=== PATIENT | male | born 1955 | race Caucasian/White ===

== ENCOUNTER → 2018-05-15 10:46 | Outpatient (CLI) | payer MEDICAID, SELFPAY ==
[2018-05-15 11:55] LABS: Absolute Lymphocyte Count 2.68 X10^3/ul (0.83-4.51); Absolute Neutrophil Count 3.8 X10^3/uL (2.0-7.7); Basophil# 0.02 X10^3/uL; Basophil% 0.3 % (0-1); Eosinophil# 0.16 X10^3/uL; Eosinophils% 2.3 % (0-5); Hematocrit 43.1 % (40-54); Hemoglobin 14.6 g/dl (13.0-16.5); Lymphocyte # 2.68 X10^3/ul (4.0); Lymphocyte % 37.9 % (19-41); Mean Corp Hgb Conc 33.9 g/gl (32-36); Mean Corpuscular Hgb 32.5 pg (27.0-32.0); Mean Platelet Vol. 9.9 fl (6.2-12.0); Monocyte# 0.39 X10^3/uL; Monocyte% 5.5 % (0-10); Neutrophil # 3.82 X10^3/uL (2.7-7.7); Platelet Count 270 K/mm3 (150-450); RBC Distribution Width CV 13.2 % (11.6-14.6); RBC Distribution Width SD 46.3 fl (35.1-43.9); Red Blood Count 4.49 M/mm3 (4.6-6.2); White Blood Count 7.1 K/mm3 (4.4-11.0)
--- NOTE | 2018-05-15 12:00 | US_ITS ---
STUDY: THYROID ULTRASOUND REASON FOR EXAM: Male, 62 years old. Right neck lump. TECHNIQUE: Ultrasound evaluation of the thyroid was performed with real-time and static marin-scale imaging. COMPARISON: None. FINDINGS: RIGHT LOBE: The right lobe of the thyroid gland measures 4.4 cm x 1.7 cm x 1.4 cm. There is a homogeneous echotexture. There is a 4 mm x 3 mm x 3 mm mixed solid and cystic nodule in the midportion of the right lobe. LEFT LOBE: The left lobe of the thyroid gland measures 4.5 cm x 1.5 cm x 1.2 cm. There is a homogeneous echotexture. There is a 3 mm x 4 mm x 2 mm cyst in the lower lobe. There is also evidence of a 4 mm x 4 mm x 3 mm solid nodule in the lower lobe. ISTHMUS: The isthmus measures 2.0 mm. The regional lymph nodes are normal. US/Thyroid IMPRESSION: Subcentimeters bilateral nodules. No other abnormality is seen. Electronically Signed: Manoj Savage MD at 13:13 EST Tel [phone], Service support ,
[2018-05-15 12:01] LABS: POSITIVE COUNT NO; POSITIVE DIFFERENTIAL NO; POSITIVE MORPHOLOGY NO
[2018-05-15 12:08] LABS: BUN 17 mg/dL (7-18); Creatinine, Serum 1.03 mg/dL (0.70-1.30); Glucose 90 mg/dL (74-106)
[2018-05-15 12:09] LABS: Anion Gap 4 (5-15); BUN/Creat Ratio 16.5 RATIO (10-20); Calcium,Total 9.1 mg/dL (8.5-10.1); Chloride 106 mmol/L (98-107); EST Glomerular Filtration Rate 77 mL/min (>60); Est Glom Filt Rate - Afr Amer 93 mL/min (>60); Potassium 4.2 mmol/L (3.5-5.1); Sodium Level 140 mmol/L (136-145)
--- OUTSIDE RECORDS SUMMARY | 2018-07-10 13:05 | XMS RPT_ITS ---
:1955 Author Organization [facility] Care Team Providers Name Role Phone Ranjeet Eid Attending Unavailable Ranjeet Eid Primary Care Unavailable Ranjeet Eid Referring Unavailable Ranjeet Eid Attending Unavailable Ranjeet Eid Referring Unavailable Ranjeet Eid Primary Care Unavailable PROBLEMS PROBLEMS DATE TYPE CONDITION / CODE ATTENDING STATUS SOURCE 05/15/2018 Unknown R22.1 - Ranjeet Eid Active [place] Local[facility] Community swelling, [facility] and lump, neck / Repository R22.1(ICD-10) PROCEDURES PROCEDURES No Procedure Records FoundRESULTS RESULTS CAROTID UNILATERAL Observed: 05/18/2018 Status: F Source: [place] 2:16 PM [facility] REPOSITORY [facility] Cardiovascular Services [address] [place] [address] Carotid Unilateral 05/16/18 1000 MR#: [id number] Acct: [id number] Name: JORGE JACQUES Rep #: [id number] : 1955 62 From: Arnoldo Vital MD Attending Dr: Ranjeet Eid DO Status: REG CLI Ordering Dr: Ranjeet Eid DO Date: 05/16/18 Location: [facility] Sex: M C Admitted: Reason For Study: Neck Pain Rt. Velocities/BP Prox CCA 93.8/14.1 cm/sec. Mid CCA 60.9/12.2 cm/sec. Dist CCA 48.3/11.4 cm/sec. Prox ICA 97.3/22.3 cm/sec. Mid ICA 91.5/28.1 cm/sec. Dist ICA 95.6/32.2 cm/sec. Rt. ICA/CCA = 1.60. Prox ECA 101/9.97 cm/sec. Rt. Vert. 46.4/13 cm/sec. Right Extracranial There is heterogeneous, smooth atherosclerotic plaque noted in the right common carotid artery. There is homogeneous, smooth atherosclerotic plaque noted in the right internal carotid artery. There is intimal thickening but no significant atherosclerotic plaque noted in the right external carotid artery. Antegrade flow is noted in the right vertebral artery. Procedure Carotid Duplex 18741. Exam performed in department. Interpretation Summary Mild (<50%) stenosis right extracranial internal carotid. Flow within the right verterbral artery is antegrade. Ordering Physician: Ranjeet Eid Referring Physician: Ranjeet Eid Performed By: Priscilla Natarajan RVT and Student 05/18/18 1416 Date Arnoldo Vital MD CC: Ranjeet Eid DO Date Dictated: 05/16/18 1000 Date Transcribed: 05/18/181415 Superintendent Terminal: Signed THYROID Observed: 05/15/2018 Status: F Source: [place] 12:00 PM [facility] REPOSITORY [facility] Imaging Services [address] [place] [address] Thyroid MR#: [id number] Acct: [id number] Name: JORGE JACQUES Rep #: [id number] : 1955 M 62 From: Manoj Savage MD PCP: Ranjeet Eid DO Status: REG CLI Study: Thyroid Date of Exam: 05/15/18 Exam# [id number] Ordering Dr: Ranjeet Eid DO STUDY: THYROID ULTRASOUND REASON FOR EXAM: Male, 62 years old. Right neck lump. TECHNIQUE: Ultrasound evaluation of the thyroid was performed with real-time and static marin-scale imaging. COMPARISON: None. FINDINGS: RIGHT LOBE: The right lobe of the thyroid gland measures 4.4 cm x 1.7 cm x 1.4 cm. There is a homogeneous echotexture. There is a 4 mm x 3 mm x 3 mm mixed solid and cystic nodule in the midportion of the right lobe. LEFT LOBE: The left lobe of the thyroid gland measures 4.5 cm x 1.5 cm x 1.2 cm. There is a homogeneous echotexture. There is a 3 mm x 4 mm x 2 mm cyst in the lower lobe. There is also evidence of a 4 mm x 4 mm x 3 mm solid nodule in the lower lobe. ISTHMUS: The isthmus measures 2.0 mm. The regional lymph nodes are normal. US/Thyroid IMPRESSION: Subcentimeters bilateral nodules. No other abnormality is seen. Electronically Signed: Manoj Savage MD at 13:13 EST Tel [phone], Service support , CC: Ranjeet Eid DO Superintendent Terminal: Signed CBC W/DIFF, AUTOMATED Collected: 05/15/2018 Status: F Source: [place] 10:48 AM [facility] REPOSITORY TYPE CODE TESTS RESULT OUT OF RANGE REFERENCE UNITS LAB L100.1000 4.4-11.0 K/mm3 Normal WBC 7.1 LAB L100.1200 4.6-6.2 M/mm3 Low RBC 4.49 LAB L100.1300 13.0-16.5 g/dl Normal HGB 14.6 LAB L100.1400 40-54 % Normal HCT 43.1 LAB L100.1500 80-94 fL High MCV 96.0 LAB L100.1600 27.0-32.0 pg High MCH 32.5 LAB L100.1700 32-36 g/gl Normal MCHC 33.9 LAB L100.1810 11.6-14.6 % Normal RDW CV 13.2 LAB L100.1820 35.1-43.9 fl High RDW SD 46.3 LAB L100.1900 150-450 K/mm3 Normal PLT 270 LAB L100.2000 6.2-12.0 fl Normal MPV 9.9 LAB L100.2100 47-70 % Normal NEUT% 54.0 LAB L100.2200 19-41 % Normal LY% 37.9 LAB L100.2300 0-10 % Normal MONO% 5.5 LAB L100.2400 0-5 % Normal EO% 2.3 LAB L100.2500 0-1 % Normal BASO% 0.3 LAB L100.2550 0.0-0.9 % Normal IM GRAN % 0.000 Result Comment: IG% - Immature Granulocytes (promyelocytes, myelocytes and metamyelocytes) > 1% indicates that a LEFT SHIFT is Present. LAB L100.2620 2.0-7.7 X10 3/uL Normal Absolute Neut 3.8 LAB L100.2720 0.83-4.51 X10 3/ul Normal Absolute Lymph 2.68 Performed By: #### L100.0100 #### [facility] [address] [place], [address] BASIC METABOLIC Collected: 05/15/2018 Status: F Source: [place] [facility] ([facility]) 10:48 AM [facility] REPOSITORY TYPE CODE TESTS RESULT OUT OF RANGE REFERENCE UNITS LAB L501.0100 74-106 mg/dL Normal GLU 90 Result Comment: Please note revised GLUCOSE reference range effective 2017. LAB L501.1000 7-18 mg/dL Normal BUN 17 LAB L501.1100 0.70-1.30 mg/dL Normal CREAT,SERUM 1.03 Result Comment: The validity of the calculated GFR AND GFRAA in patients over 70 years has not been determined. Clinical correlation is essential. LAB L501.1110 >60 mL/min Normal EST GFR 77 Result Comment: Non- GFR Calc LAB L501.1115 >60 mL/min Normal EST GFR - AA 93 Result Comment: GFR Calc LAB L501.1300 10-20 RATIO Normal BUN/CRE 16.5 LAB L501.2200 8.5-10.1 mg/dL CA Normal 9.1 LAB L501.5300 136-145 mmol/L NA Normal 140 LAB L501.5600 3.5-5.1 mmol/L K Normal 4.2 LAB L501.5900 98-107 mmol/L CL Normal 106 LAB L501.6100 21.0-32.0 mmol/L Normal CO2 30.0 LAB L501.6200 5-15 Low GAP 4 Performed By: #### L500.2500 #### [facility] [address] [facility] [place], [address] ALLERGIES ALLERGIES No Allergies Records FoundENCOUNTERS ENCOUNTERS ADMIT/DISCHARGE ACCOUNT ADMITTING ENCOUNTER LOCATION SOURCE NUMBER CLASS 05/16/2018 [id number] Ambulatory [place] 1 [facility] ing:[facility] Repository 05/15/2018 [id number] [facility] 3 [facility] ing: Repository PAYERS PAYERS ENCOUNTER GUARANTOR PAYER SUBSCRIBER SOURCE 05/16/2018 JORGE L Primary JORGE L [place] [id number] [place] Insurance:CARESOURCEP STARCHERDOB: [facility] Number: [id number] [address]Lem: [phone] [id number] Repository [phone] () Date:2018-05-[address]ATTN: [place] [address]KC: 05/16/2018 Secondary NOT GIVENUNK [place] Insurance:SELF PAY [facility] Number: Effective Repository Date:2018-05-15 05/15/2018 JORGE L Primary JORGE L [place] [id number] [place] Insurance:CARESOURCEP STARCHERDOB: [facility] Number: [id number] [address]Rnj: [phone] [id number] Repository [phone] () Date:2018-05-15[address]ATTN: [place] [address]MG: 05/15/2018 Secondary NOT GIVENUNK [place] Insurance:SELF PAY [facility]: Effective Repository Date:2018-05-15
== END ==
PROVIDERS: Family Provider Family Medicine; PCP Family Medicine; Referring Provider Family Medicine; Visit Provider Family Medicine
DX: R22.1 Localized swelling, mass and lump, neck (principal)
CPT/HCPCS: 36415; 76536; 80048; 85025

== ENCOUNTER → 2018-05-16 09:53 | Outpatient (CLI) | payer MEDICAID, SELFPAY ==
--- NOTE | 2018-05-16 09:57 | CDUL_ITS ---
Reason For Study: Neck Pain Rt. Velocities/BP Prox CCA 93.8/14.1 cm/sec. Mid CCA 60.9/12.2 cm/sec. Dist CCA 48.3/11.4 cm/sec. Prox ICA 97.3/22.3 cm/sec. Mid ICA 91.5/28.1 cm/sec. Dist ICA 95.6/32.2 cm/sec. Rt. ICA/CCA = 1.60. Prox ECA 101/9.97 cm/sec. Rt. Vert. 46.4/13 cm/sec. Right Extracranial There is heterogeneous, smooth atherosclerotic plaque noted in the right common carotid artery. There is homogeneous, smooth atherosclerotic plaque noted in the right internal carotid artery. There is intimal thickening but no significant atherosclerotic plaque noted in the right external carotid artery. Antegrade flow is noted in the right vertebral artery. Procedure Carotid Duplex 04615. Exam performed in department. Interpretation Summary Mild (<50%) stenosis right extracranial internal carotid. Flow within the right verterbral artery is antegrade. Ordering Physician: Ranjeet Eid Referring Physician: Ranjeet Eid Performed By: Priscilla Natarajan RVT and Student
--- OUTSIDE RECORDS SUMMARY | 2018-07-11 05:04 | XMS RPT_ITS ---
[...] Ranjeet Eid Active [place] Localized Community swelling, [facility] and lump, neck / Repository R22.1(ICD-10) PROCEDURES PROCEDURES No Procedure Records FoundRESULTS RESULTS CAROTID UNILATERAL Observed: 05/18/2018 Status: F Source: [place] 2:16 PM [facility] REPOSITORY [facility] Cardiovascular Services [address] [place] [address] Carotid Unilateral 05/16/18 1000 MR#: [id number] Acct: [id number] Name: JORGE JACQUES Rep #: [id number] : 1955 62 From: Arnoldo Vital MD Attending Dr: Ranjeet Eid DO Status: REG CLI Ordering Dr: Ranjeet Eid DO Date: 05/16/18 [facility] Sex[facility] M C Admitted: Reason For Study: [...] the right vertebral artery. Procedure Carotid Duplex 57214. Exam performed in department. Interpretation Summary Mild (<50%) stenosis right extracranial internal carotid. Flow within the right verterbral artery is antegrade. Ordering Physician: Ranjeet Eid Referring Physician: Ranjeet Eid Performed By: Priscilla Natarajan RVT and Student 05/18/18 1416 Date Arnoldo Vital MD CC: Ranjeet Eid DO Date Dictated: 05/16/18 1000 Date Transcribed: 05/18/181415 [place]: Signed THYROID Observed: 05/15/2018 Status: F Source: [place] 12:00 PM [facility] REPOSITORY [facility] Imaging Services [address] [place] [address] Thyroid MR#: [id number] Acct: [id number] Name: JORGE JACQUES Rep #: [id number] : 1955 M 62 From: Manoj Savage MD PCP: Ranjeet Eid DO Status: REG CLI Study: Thyroid Date of Exam: 05/15/18 Exam# [id number] Ordering Dr: Ranjeet Eid DO STUDY: THYROID [...] Manoj Savage MD at 13:13 EST Tel [phone], Service support , CC: Ranjeet Eid DO Slipman: Signed CBC W/DIFF, AUTOMATED Collected: 05/15/2018 Status: F Source: [place] 10:48 AM [facility] REPOSITORY TYPE CODE TESTS RESULT OUT OF [...] Lymph 2.68 Performed By: #### L100.0100 #### [facility] [address] [place], [address] BASIC METABOLIC Collected: 05/15/2018 Status: F Source: [place] [facility] ([facility]) 10:48 AM [facility] REPOSITORY TYPE CODE TESTS RESULT OUT OF [...] GAP 4 Performed By: #### L500.2500 #### [facility] [address] [facility] [place], [address] ALLERGIES ALLERGIES No Allergies Records FoundENCOUNTERS ENCOUNTERS ADMIT/DISCHARGE ACCOUNT ADMITTING ENCOUNTER LOCATION SOURCE NUMBER CLASS 05/16/2018 [id number] Ambulatory [place] 1 [facility] Repository 05/15/2018 [id number] [facility] 3 [facility] ing: Repository PAYERS PAYERS ENCOUNTER GUARANTOR PAYER SUBSCRIBER SOURCE 05/16/2018 JORGE L Primary JORGE L [place] [id number] [place] Insurance:CARESOURCEP STARCHERDOB: [facility] Number: [id number] [address]Yze: [phone]) [id number] Repository [phone] () Date:2018-05-15[address]ATTN: [place] [address]TO: 05/16/2018 Secondary NOT GIVENUNK [place] Insurance:SELF PAY [facility] Number: Effective Repository Date:2018-05-15 05/15/2018 JORGE L Primary JORGE L [place] [id number] [place] Insurance:CARESOURCEP STARCHERDOB: [facility] Number: [id number] [facility] [address]Rmq: [phone] [id number] Repository [phone] () Date:2018-05-15[address]ATTN: [place] [address]KE: 05/15/2018 Secondary NOT GIVENUNK [place] Insurance:SELF PAY [facility]: Effective Repository Date:2018-05-15
== END ==
PROVIDERS: Family Provider Family Medicine; PCP Family Medicine; Referring Provider Family Medicine; Visit Provider Family Medicine
DX: R22.1 Localized swelling, mass and lump, neck (principal)
CPT/HCPCS: 93882

== ENCOUNTER → 2018-06-26 16:28 | Outpatient (CLI) | payer MEDICAID, SELFPAY ==
--- NOTE | 2018-06-26 | IMM_PTH ---
PATIENT: JORGE JACQUES LOC: [facility] U#:[id number] AGE/SX: 69/M ROOM: RE06/26/[address]: Dr. Ranjeet Eid DO : 1955 BED: DIS: SPEC #: [id number] RECD: 06/30/18 10:55 STATUS: SUSAN RERosibel #: [id number] ROD: 06/26/18 00:[address]: Ranjeet Eid DEPT: IMMUNOHISTOCHEMISTRY RECD BY: Glenna Rowan Tissues: Skin of arm Procedures: CK5-6 (initial) MART1 (add) P40 (add) S-100 (add) PHYSICIAN & INSTITUTION [place] [address] SPECIMEN INFORMATION: Tissue Source: Right arm punch biopsy Clinical Info: Nevus Specimen Number: [id number] CPT code: 47300, 11415 x3 METHODOLOGY: Deparaffinized sections of prefer/formalin-fixed tissue or PAP/DQ stained slides are incubated with monoclonal/polyclonal antibodies/oligonucleotide probes. Localization is made via biotin free immunoperoxidase method. Appropriate controls are performed and reacted as expected. Results on target cell population are indicated in the following table: RESULTS: ANTIBODY / CLONE RESULT S-100 (4C4.9) negative P40 (BC28) positive CK5-6 (D5 & 1684) positive MART-1 (A-103) negative These tests were developed and their performance characteristics determined by [facility]. They may not have been cleared or approved by the U.S. Food and Drug Administration. The FDA has determined that such clearance or approval is not necessary. INTERPRETATION: Right arm, punch biopsy: Consistent with actinic keratosis with moderate atypia. SJ:juan antonio 07/01/18
--- NOTE | 2018-06-26 | LES_PTH ---
PATIENT: JORGE JACQUES LOC: [facility] U#:[id number] AGE/SX: 69/M ROOM: RE06/26/[address]: Dr. Ranjeet Eid DO : 1955 BED: DIS: SPEC #: [id number] RECD: 06/26/18 17:35 STATUS: SUSAN CROW #: [id number] ROD: 06/26/18 00:[address]: Ranjeet Eid DEPT: SURGICAL PATHOLOGY RECD BY: Vamsi Flanagan Tissues: Skin of arm Procedures: Special Stain Group I Surgery Specimen Level IV GMS Stain (control) HEADER OPERATION: Punch biopsy right arm PRE-OP DIAGNOSIS: Scaling, irritated, irregular nevus; suspect inflamed nevus/keratosis TISSUE SUBMITTED: 5 mm punch biopsy MICROSCOPIC DIAGNOSIS Right arm, punch biopsy: Actinic keratosis with moderate atypia and focal hyperkeratosis. Extensive solar elastosis. Dermal and junctional chronic inflammation and dermal melanophages. Negative for malignancy. Special stain for fungi is negative for organisms; matched control is appropriate. SJ:juan antonio 06/30/18 COMMENT Immunohistochemistry ([id number]) supports the above diagnosis. Case has been reviewed in consultation with Dr. Quiroz who concurs with the above diagnosis. IDC:AM MICROSCOPIC DESCRIPTION Slides are reviewed. GROSS DESCRIPTION Received is one container labeled with the patient's name and not further designated. The specimen consists of a single discoid fragment of light hamilton soft tissue measuring 0.5 x 0.3 x 0.1 cm. The specimen is submitted in its entirety in one cassette. / AM:juan antonio 06/27/18 TC:5 CPT: 56286, 51105
== END ==
PROVIDERS: Family Provider Family Medicine; PCP Family Medicine; Visit Provider Family Medicine
DX: L57.0 Actinic keratosis (principal); L85.9 Epidermal thickening, unspecified; L57.8 Other skin changes due to chronic exposure to nonionizing radiation
CPT/HCPCS: 88305; 88312; 88341; 88342

== ENCOUNTER → 2018-11-20 | Outpatient (CLI) | payer MEDICARE, SELFPAY ==
[2018-11-20 12:30] LABS: Absolute Lymphocyte Count 2.51 X10^3/ul (0.83-4.51); Absolute Neutrophil Count 3.6 X10^3/uL (2.0-7.7); Basophil# 0.03 X10^3/uL; Basophil% 0.4 % (0-1); Eosinophil# 0.13 X10^3/uL; Eosinophils% 1.9 % (0-5); Hematocrit 42.6 % (40-54); Hemoglobin 14.4 g/dl (13.0-16.5); Lymphocyte # 2.51 X10^3/ul (4.0); Lymphocyte % 37.3 % (19-41); Mean Corp Hgb Conc 33.8 g/gl (32-36); Mean Corpuscular Hgb 31.9 pg (27.0-32.0); Mean Corpuscular Volume 94.2 fL (80-94); Mean Platelet Vol. 10.2 fl (6.2-12.0); Monocyte# 0.41 X10^3/uL; Monocyte% 6.1 % (0-10); Neutrophil # 3.64 X10^3/uL (2.7-7.7); Neutrophil % 54.2 % (47-70); Platelet Count 297 K/mm3 (150-450); RBC Distribution Width CV 12.8 % (11.6-14.6); Red Blood Count 4.52 M/mm3 (4.6-6.2); White Blood Count 6.7 K/mm3 (4.4-11.0)
[2018-11-20 12:37] LABS: POSITIVE COUNT NO; POSITIVE DIFFERENTIAL NO; POSITIVE MORPHOLOGY NO
[2018-11-20 12:40] LABS: Microalbumin,Random Urine 5.6 mg/L (NO RANGE EST.); Microalbumin:Creatinine Ratio 5.6 mg/g CRE (<30 mg/g CRE)
[2018-11-20 13:09] LABS: ALB/GLOB Ratio 1.3 RATIO (0.9-2.4); AST(SGOT) 23 U/L (15-37); Alanine Aminotransfer ALT/SGPT 24 U/L (16-61); Albumin, Serum 3.9 g/dL (3.2-5.0); Alkaline Phosphatase 101 U/L (45-117); Anion Gap 5 (5-15); BUN 15 mg/dL (7-18); Chloride 104 mmol/L (98-107); Cholesterol 197 mg/dL (200); Creatinine, Serum 1.07 mg/dL (0.70-1.30); EST Glomerular Filtration Rate 74 mL/min (>60); Est Glom Filt Rate - Afr Amer 89 mL/min (>60); Globulin 3.1 g/dL (2.2-4.2); Glucose 93 mg/dL (74-106); High Density Lipoprotein 50 mg/dL; Potassium 4.1 mmol/L (3.5-5.1); Sodium Level 139 mmol/L (136-145); T4 Free Direct 0.87 ng/dL (0.76-1.46); Thyroid Stim Hormone (TSH) 0.84 uIU/mL (0.358-3.74); Triglycerides 79 mg/dL; Very Low Density Lipoprotein 16 mg/dL (5-40)
[2018-11-20 13:15] LABS: Vitamin D,25 Hydroxy 46.5 ng/mL (29.95-100.01)
[2018-11-25 13:24] LABS: Testosterone, % Free 1.61 % (1.50-4.20); Testosterone, Total 522 ng/dL (264-916)
== END | disposition home or self-care (01) ==
PROVIDERS: Family Provider Family Medicine; PCP Family Medicine; Visit Provider Family Medicine
DX: Z00.00 Encounter for general adult medical examination without abnormal findings (principal); R53.83 Other fatigue; I10 Essential (primary) hypertension; E04.2 Nontoxic multinodular goiter; Z12.5 Encounter for screening for malignant neoplasm of prostate
CPT/HCPCS: 36415; 80053; 80061; 82043; 82306; 82570; 84153; 84402; 84403; 84439; 84443; 85025; G0103

== ENCOUNTER → 2018-11-20 | Outpatient (CLI) | payer MEDICARE, OTHER, SELFPAY ==
--- NOTE | 2018-11-20 18:28 | US_ITS ---
STUDY: THYROID ULTRASOUND REASON FOR EXAM: Male, 63 years old. Thyroid nodule follow-up TECHNIQUE: Ultrasound evaluation of the thyroid was performed with real-time and static marin-scale imaging. COMPARISON: 05/15/2018 FINDINGS: RIGHT LOBE: The right lobe of the thyroid gland measures 4.6 x 1.6 x 1.2 cm. There is a homogeneous echotexture. Nearly anechoic (with central solid portion) nodule the right thyroid lobe measures 4 mm. Additional anechoic subcentimeter cysts are stable. LEFT LOBE: The left lobe of the thyroid gland measures 4.9 x 1.5 x 1.4 cm. There is a homogeneous echotexture. 2 mm anechoic cyst in the inferior left thyroid lobe is stable. 4 mm hypoechoic nodule of the left thyroid lobe is stable since the prior study. ISTHMUS: The isthmus measures 3 mm. The regional lymph nodes are normal. US/Thyroid IMPRESSION: 1. Stable exam. No new or enlarging thyroid nodule/cyst. Electronically Signed: Triston Ozuna MD at 15:52 EDT , Service support ,
== END | disposition home or self-care (01) ==
LOC: US 18:24
PROVIDERS: Family Provider Family Medicine; PCP Family Medicine; Visit Provider Family Medicine
DX: E04.2 Nontoxic multinodular goiter (principal); Z00.00 Encounter for general adult medical examination without abnormal findings; R53.83 Other fatigue; I10 Essential (primary) hypertension; Z12.5 Encounter for screening for malignant neoplasm of prostate
CPT/HCPCS: 36415; 76536; 80053; 80061; 82043; 82306; 82570; 84153; 84402; 84403; 84439; 84443; 85025; G0103

== ENCOUNTER → 2019-05-19 08:18 | Outpatient (CLI) | payer MEDICARE, OTHER, SELFPAY ==
--- NOTE | 2019-05-19 08:37 | EKG12_ITS ---
Test Reason : PRE-OP Blood Pressure : / mmHG Vent. Rate : 055 BPM Atrial Rate : 055 BPM P-R Int : 148 ms QRS Dur : 138 ms QT Int : 482 ms P-R-T Axes : 078 -08 098 degrees QTc Int : 461 ms Sinus bradycardia Left bundle branch block Abnormal ECG Confirmed by VERENA BROWN, RUTH ([id number]), newspaper photo editor JAMIE NEIL ([id number]) on 05/20/2019 1:08:32 PM Referred By: Erin Joyce Confirmed By:RUTH ALBARADO MD
[2019-05-19 09:29] LABS: Hematocrit 45.5 % (40-54); Hemoglobin 15.3 g/dL (13.0-16.5); Mean Corp Hgb Conc 33.6 g/dL (32-36); Mean Corpuscular Hgb 32.6 pg (27.0-32.0); Mean Platelet Vol. 9.9 fl (6.2-12.0); Platelet Count 259 K/mm3 (150-450); RBC Distribution Width SD 46.5 fl (35.1-43.9); Red Blood Count 4.69 M/mm3 (4.6-6.2); White Blood Count 6.3 K/mm3 (4.4-11.0)
[2019-05-19 09:54] LABS: Anion Gap 4 (5-15); BUN 16 mg/dL (7-18); BUN/Creat Ratio 15.4 RATIO (10-20); Calcium,Total 9.2 mg/dL (8.5-10.1); Chloride 105 mmol/L (98-107); Creatinine, Serum 1.04 mg/dL (0.70-1.30); EST Glomerular Filtration Rate 76 mL/min (>60); Est Glom Filt Rate - Afr Amer 92 mL/min (>60); Glucose 89 mg/dL (74-106); Potassium 4.1 mmol/L (3.5-5.1); Sodium Level 140 mmol/L (136-145)
== END ==
PROVIDERS: Family Provider Family Medicine; PCP Family Medicine; Referring Provider Physician Assistant; Visit Provider Physician Assistant
DX: Z01.810 Encounter for preprocedural cardiovascular examination (principal); Z01.818 Encounter for other preprocedural examination
CPT/HCPCS: 36415; 80048; 85027; 93005

== ENCOUNTER → 2019-05-29 09:03 | Outpatient (CLI) | payer MEDICARE, OTHER, SELFPAY ==
--- NOTE | 2019-05-29 09:06 | RAD_ITS ---
STUDY: X-RAY - ESOPHAGUS (BARIUM SWALLOW) WITH FLUOROSCOPY REASON FOR EXAM: Male, 63 years old. Gastroesophageal reflux. TECHNIQUE: 15 view(s) of the esophagus were obtained following swallowing of barium. FLUOROSCOPY TIME (if supplied): (0:33) minutes/seconds COMPARISON: None. FINDINGS: There is no demonstrated esophageal foreign body. There is no demonstrated stricture or mucosal abnormality. Normal gastroesophageal junction, without a demonstrated hiatal hernia. The patient ingested a 12 mm tablet of barium without any difficulty. There is atherosclerotic calcification of the aortic arch with tortuosity of the descending aorta. Normal visualized pulmonary parenchyma. There are diffuse degenerative changes of the visualized thoracic spine. RAD/Esophagus Only IMPRESSION: Normal plain film x-ray examination (barium swallow) of the esophagus. Electronically Signed: Manoj Savage, at 13:47 EST , Service support ,
== END ==
PROVIDERS: Family Provider Family Medicine; PCP Family Medicine; Referring Provider Otolaryngology; Visit Provider Otolaryngology
DX: K21.9 Gastro-esophageal reflux disease without esophagitis (principal)
CPT/HCPCS: 74220

== ENCOUNTER → 2019-12-02 08:24 | Outpatient (CLI) | payer MEDICARE, OTHER, SELFPAY ==
[2019-12-02 12:50] LABS: Absolute Lymphocyte Count 2.13 X10^3/uL (0.83-4.51); Absolute Neutrophil Count 2.3 X10^3/uL (2.0-7.7); Basophil# 0.05 X10^3/uL; Basophil% 0.9 % (0-1); Eosinophil# 0.24 X10^3/uL; Eosinophils% 4.5 % (0-5); Hematocrit 40.9 % (40-54); Hemoglobin 13.8 g/dL (13.0-16.5); Lymphocyte # 2.13 X10^3/ul (4.0); Mean Corp Hgb Conc 33.7 g/dL (32-36); Mean Corpuscular Hgb 33.7 pg (27.0-32.0); Mean Corpuscular Volume 99.8 fL (80-94); Mean Platelet Vol. 10.2 fl (6.2-12.0); Monocyte% 11.3 % (0-10); NRBC Flagged by Analyzer 0 % (0-5); Neutrophil # 2.29 X10^3/uL (2.7-7.7); Neutrophil % 43.1 % (47-70); Platelet Count 256 K/mm3 (150-450); RBC Distribution Width CV 13.1 % (11.6-14.6); RBC Distribution Width SD 47.4 fl (35.1-43.9); White Blood Count 5.3 K/mm3 (4.4-11.0)
[2019-12-02 13:20] LABS: ALB/GLOB Ratio 1.5 RATIO (0.9-2.4); AST(SGOT) 21 U/L (15-37); Alanine Aminotransfer ALT/SGPT 25 U/L (16-61); Alkaline Phosphatase 102 U/L (45-117); Anion Gap 6 (5-15); BUN 18 mg/dL (7-18); Chloride 102 mmol/L (98-107); Cholesterol 203 mg/dL (200); Creatinine, Serum 1.06 mg/dL (0.70-1.30); EST Glomerular Filtration Rate 74 mL/min (>60); Est Glom Filt Rate - Afr Amer 90 mL/min (>60); Globulin 2.7 g/dL (2.2-4.2); Glucose 86 mg/dL (74-106); High Density Lipoprotein 45 mg/dL; PSA,Total - Annual Screen 0.22 ng/mL (0.00-4.00); Protein, Total 6.7 g/dL (6.4-8.2); Sodium Level 138 mmol/L (136-145); T4 Free Direct 0.98 ng/dL (0.76-1.46); Thyroid Stim Hormone (TSH) 1.19 uIU/mL (0.358-3.74); Triglycerides 117 mg/dL; Very Low Density Lipoprotein 23 mg/dL (5-40)
[2019-12-02 13:39] LABS: Hepatitis C Antibody Non-Reactive (Nonreactive)
[2019-12-03 07:44] LABS: SARS-COV-2 TOTAL ABS Nonreactive (Nonreactive)
== END ==
LOC: LAB.FUTURE 08:25 → BFHLAB 08:26
PROVIDERS: PCP Family Medicine; Visit Provider Family Medicine
DX: R53.83 Other fatigue (principal); Z11.59 Encounter for screening for other viral diseases; Z91.89 Other specified personal risk factors, not elsewhere classified; Z20.828 Contact with and (suspected) exposure to other viral communicable diseases; I10 Essential (primary) hypertension; I65.29 Occlusion and stenosis of unspecified carotid artery; E04.2 Nontoxic multinodular goiter; Z51.81 Encounter for therapeutic drug level monitoring; Z12.5 Encounter for screening for malignant neoplasm of prostate
CPT/HCPCS: 36415; 80053; 80061; 84153; 84439; 84443; 85025; 86769; 86803; G2023; G0103

== ENCOUNTER → 2019-12-31 12:40 | Outpatient (CLI) | payer MEDICARE, OTHER, SELFPAY ==
--- NOTE | 2019-12-31 12:45 | CDU_ITS ---
Reason For Study: reevaluation of carotid atherosclerosis Rt. Velocities/BP Lt. Velocities/BP Prox CCA 126.6/17.0 cm/sec. Prox CCA 98.6/18.8 cm/sec. Mid CCA 101.1/17.0 cm/sec. Mid CCA 63.0/13.9 cm/sec. Dist CCA 90.0/18.8 cm/sec. Dist CCA 64.2/13.9 cm/sec. Prox ICA 67.9/13.9 cm/sec. Prox ICA 79.0/24.9 cm/sec. Mid ICA 97.4/31.1 cm/sec. Mid ICA 88.8/33.5 cm/sec. Dist ICA 92.5/27.4 cm/sec. Dist ICA 106.0/36.0 cm/sec. Rt. ICA/CCA = 1.0. Lt. ICA/CCA = 1.7. Prox ECA 101.1/9.0 cm/sec. Prox ECA 85.1/9.0 cm/sec. Rt. Vert. 55.6/12.6 cm/sec. Lt. Vert. 61.7/14.5 cm/sec. Right Extracranial There is homogeneous, smooth atherosclerotic plaque noted in the right common carotid artery. There is heterogeneous, irregular atherosclerotic plaque noted in the right internal carotid artery. There is intimal thickening but no significant atherosclerotic plaque noted in the right external carotid artery. Antegrade flow is noted in the right vertebral artery. Left Extracranial There is homogeneous, smooth atherosclerotic plaque noted in the left common carotid artery. There is heterogeneous, irregular atherosclerotic plaque noted in the left internal carotid artery. There is homogeneous, smooth atherosclerotic plaque noted in the left external carotid artery. Antegrade flow is noted in the left vertebral artery. Procedure Carotid Duplex 70600. The exam was diagnostic. Exam performed in department. Interpretation Summary Mild (<50%) stenosis right extracranial internal carotid. Mild (<50%) stenosis left extracranial internal carotid. Flow within the vertebral arteries is antegrade bilaterally. Ordering Physician: Ranjeet Eid Performed By: Andrew Garcia RVT
== END ==
PROVIDERS: PCP Family Medicine; Referring Provider Family Medicine; Visit Provider Family Medicine
DX: I65.23 Occlusion and stenosis of bilateral carotid arteries (principal)
CPT/HCPCS: 93880

== ENCOUNTER → 2020-05-31 17:29 | Outpatient (CLI) | payer MEDICARE, OTHER, SELFPAY | PROVIDERS: PCP Family Medicine; Referring Provider Family Medicine; Visit Provider Family Medicine | DX: R05 Cough (principal); Z20.828 Contact with and (suspected) exposure to other viral communicable diseases | CPT/HCPCS: 87635; C9803; U0003 ==

== ENCOUNTER → 2020-12-06 08:29 | Outpatient (CLI) | payer MEDICARE, OTHER, SELFPAY ==
[2020-12-06 10:03] LABS: Absolute Lymphocyte Count 2.62 X10^3/uL (0.83-4.51); Absolute Neutrophil Count 4.7 X10^3/uL (2.0-7.7); Basophil# 0.03 X10^3/uL; Basophil% 0.4 % (0-1); Eosinophil# 0.21 X10^3/uL; Eosinophils% 2.6 % (0-5); Hematocrit 43.9 % (40-54); Hemoglobin 14.6 g/dL (13.0-16.5); Lymphocyte # 2.62 X10^3/ul (0.83-4.51); Lymphocyte % 32.5 % (19-41); Mean Corp Hgb Conc 33.3 g/dL (32-36); Mean Corpuscular Hgb 32.3 pg (27.0-32.0); Mean Corpuscular Volume 97.1 fL (80-94); Monocyte# 0.48 X10^3/uL; NRBC Flagged by Analyzer 0 % (0-5); Neutrophil # 4.69 X10^3/uL (2.7-7.7); Neutrophil % 58.3 % (47-70); Platelet Count 301 K/mm3 (150-450); RBC Distribution Width SD 46.5 fl (35.1-43.9); Red Blood Count 4.52 M/mm3 (4.6-6.2); White Blood Count 8.1 K/mm3 (4.4-11.0)
[2020-12-06 10:56] LABS: ALB/GLOB Ratio 1.2 RATIO (0.9-2.4); AST(SGOT) 24 U/L (15-37); Alanine Aminotransfer ALT/SGPT 21 U/L (16-61); Albumin, Serum 3.8 g/dL (3.2-5.0); Alkaline Phosphatase 109 U/L (45-117); Anion Gap 4 (5-15); BUN 13 mg/dL (7-18); BUN/Creat Ratio 12.7 RATIO (10-20); Calcium,Total 9.1 mg/dL (8.5-10.1); Chloride 103 mmol/L (98-107); Cholesterol 217 mg/dL (200); Creatinine, Serum 1.02 mg/dL (0.70-1.30); EST Glomerular Filtration Rate 77 mL/min (>60); Est Glom Filt Rate - Afr Amer 94 mL/min (>60); Globulin 3.1 g/dL (2.2-4.2); Glucose 90 mg/dL (74-106); High Density Lipoprotein 55 mg/dL; Protein, Total 6.9 g/dL (6.4-8.2); Sodium Level 139 mmol/L (136-145); T4 Free Direct 0.89 ng/dL (0.76-1.46); Thyroid Stim Hormone (TSH) 1.02 uIU/mL (0.358-3.74); Triglycerides 149 mg/dL; Very Low Density Lipoprotein 30 mg/dL (5-40)
== END ==
PROVIDERS: PCP Family Medicine; Referring Provider Family Medicine; Visit Provider Family Medicine
DX: I65.29 Occlusion and stenosis of unspecified carotid artery (principal); E04.2 Nontoxic multinodular goiter; Z12.5 Encounter for screening for malignant neoplasm of prostate; I10 Essential (primary) hypertension
CPT/HCPCS: 36415; 80053; 80061; 84153; 84439; 84443; 85025; G0103

== ENCOUNTER → 2020-12-15 10:45 | Outpatient (CLI) | payer MEDICARE, OTHER, SELFPAY ==
--- NOTE | 2020-12-15 10:46 | CDU_ITS ---
Reason For Study: carotid atherosclerosis Rt. Velocities/BP Lt. Velocities/BP Prox CCA 86.5/10.8 cm/sec. Prox CCA 106.9/15.7 cm/sec. Mid CCA 63.0/10.8 cm/sec. Mid CCA 76.1/17.9 cm/sec. Dist CCA 47.3/9.5 cm/sec. Dist CCA 56.3/15.7 cm/sec. Prox ICA 39.9/10.2 cm/sec. Prox ICA 62.9/20.1 cm/sec. Mid ICA 105.8/34.4 cm/sec. Mid ICA 82.7/25.6 cm/sec. Dist ICA 82.7/25.6 cm/sec. Dist ICA 97.0/31.1 cm/sec. Rt. ICA/CCA = 1.7. Lt. ICA/CCA = 1.3. Prox ECA 104.7/6.9 cm/sec. Prox ECA 70.6/8.0 cm/sec. Rt. Vert. 46.5/11.3 cm/sec. Lt. Vert. 46.5/11.3 cm/sec. Right Extracranial There is homogeneous, smooth atherosclerotic plaque noted in the right common carotid artery. There is heterogeneous, irregular atherosclerotic plaque noted in the right internal carotid artery. There is intimal thickening but no significant atherosclerotic plaque noted in the right external carotid artery. Antegrade flow is noted in the right vertebral artery. Left Extracranial There is homogeneous, smooth atherosclerotic plaque noted in the left common carotid artery. There is heterogeneous, irregular atherosclerotic plaque noted in the left internal carotid artery. There is homogeneous, smooth atherosclerotic plaque noted in the left external carotid artery. Antegrade flow is noted in the left vertebral artery. Procedure Carotid Duplex 88256. This is a Carotid Duplex examination using B-mode, color flow and specral Doppler. The exam was diagnostic. Exam performed in department. VL/Carotid Duplex Ultrasound Interpretation Summary Mild (<50%) stenosis right extracranial internal carotid. Mild (<50%) stenosis left extracranial internal carotid. Flow within the vertebral arteries is antegrade bilaterally. Ordering Physician: Ranjeet Eid Performed By: Andrew Garcia RVT
== END ==
PROVIDERS: PCP Family Medicine; Referring Provider Family Medicine; Visit Provider Family Medicine
DX: I65.23 Occlusion and stenosis of bilateral carotid arteries (principal)
CPT/HCPCS: 93880

== ENCOUNTER → 2021-03-15 11:21 | Outpatient (CLI) | payer MEDICARE, OTHER, SELFPAY ==
--- NOTE | 2021-03-15 11:35 | RAD_ITS ---
STUDY: X-RAY - RIGHT SHOULDER REASON FOR EXAM: Male, 65 years old. Right shoulder pain. TECHNIQUE: 4 view(s) of the shoulder. COMPARISON: None. FINDINGS: Osteopenia. Mild arthrosis of the glenohumeral joint. Mild arthrosis of the AC joint. Normal acromion. Nonspecific sclerosis of the metaphysis of the proximal humerus The soft tissue structures are unremarkable. Normal visualized pulmonary apex. RAD/Shoulder min 2 Views IMPRESSION: Osteopenia with osteoarthritic changes of the glenohumeral and acromioclavicular joints. Nonspecific sclerosis of the proximal humeral metaphysis. No acute abnormality. Electronically Signed: Kameron Blanco MD at 12:52 EDT , Service support ,
--- NOTE | 2021-03-15 11:42 | RAD_ITS ---
STUDY: X-RAY - PELVIS AND LEFT HIP REASON FOR EXAM: Male, 65 years old. Pain and stiffness TECHNIQUE: 3 views of the pelvis and hip. COMPARISON: None. FINDINGS: There is a non-specific bowel gas pattern. Normal visualized soft tissue structures. There is narrowing with cortical sclerosis and osteophyte formation of the sacroiliac joint consistent with degenerative osteoarthritic changes. Normal bilateral superior and inferior pubic rami. Normal pubic symphysis. Normal bilateral ischial tuberosities. Normal visualized femoral head. Normal acetabulum. There is moderate articular joint space narrowing of the hip. RAD/HIP, UNI W/ Pelvis 2-3 Views IMPRESSION: Age consistent hip and SI joint arthrosis. No demonstrated fracture or suspicious osseous lesion. However, hip and pelvic fractures in patients of this age can be subtle, if there is strong clinical suspicion of a fracture, recommend further evaluation with CT Electronically Signed: Les Beckman MD at 14:43 EDT , Service support ,
== END ==
PROVIDERS: PCP Family Medicine; Referring Provider Family Medicine; Visit Provider Family Medicine
DX: M25.511 Pain in right shoulder (principal); M25.551 Pain in right hip
CPT/HCPCS: 73030; 73502

== ENCOUNTER → 2022-03-12 | Outpatient (CLI) | payer MEDICARE, OTHER, SELFPAY ==
[2022-03-12 09:44] LABS: Absolute Lymphocyte Count 2.61 X10^3/uL (0.83-4.51); Absolute Neutrophil Count 4.3 X10^3/uL (2.0-7.7); Basophil# 0.04 X10^3/uL; Basophil% 0.5 % (0-1); Eosinophil# 0.25 X10^3/uL; Eosinophils% 3.3 % (0-5); Hematocrit 43.8 % (40-54); Hemoglobin 15.2 g/dL (13.0-16.5); Lymphocyte # 2.61 X10^3/ul (0.83-4.51); Lymphocyte % 33.9 % (19-41); Mean Corp Hgb Conc 34.7 g/dL (32-36); Mean Corpuscular Hgb 32.9 pg (27.0-32.0); Mean Corpuscular Volume 94.8 fL (80-94); Mean Platelet Vol. 9.9 fl (6.2-12.0); Monocyte# 0.51 X10^3/uL; Monocyte% 6.6 % (0-10); NRBC Flagged by Analyzer 0 % (0-5); Neutrophil # 4.27 X10^3/uL (2.7-7.7); Neutrophil % 55.6 % (47-70); Platelet Count 287 K/mm3 (150-450); RBC Distribution Width CV 12.7 % (11.6-14.6); RBC Distribution Width SD 43.9 fl (35.1-43.9); Red Blood Count 4.62 M/mm3 (4.6-6.2); White Blood Count 7.7 K/mm3 (4.4-11.0)
[2022-03-12 10:36] LABS: ALB/GLOB Ratio 1.1 RATIO (0.9-2.4); AST(SGOT) 25 U/L (15-37); Alanine Aminotransfer ALT/SGPT 24 U/L (16-61); Albumin, Serum 3.6 g/dL (3.2-5.0); Alkaline Phosphatase 105 U/L (45-117); Anion Gap 6 (5-15); BUN 11 mg/dL (7-18); BUN/Creat Ratio 9.9 RATIO (10-20); Calcium,Total 9.2 mg/dL (8.5-10.1); Chloride 105 mmol/L (98-107); Cholesterol 206 mg/dL (200); Creatinine, Serum 1.11 mg/dL (0.70-1.30); EST Glomerular Filtration Rate 70 mL/min (>60); Est Glom Filt Rate - Afr Amer 85 mL/min (>60); Globulin 3.4 g/dL (2.2-4.2); Glucose 96 mg/dL (74-106); High Density Lipoprotein 55 mg/dL; PSA,Total - Annual Screen 0.25 ng/mL (0.00-4.00); Potassium 4.3 mmol/L (3.5-5.1); Sodium Level 141 mmol/L (136-145); Thyroid Stim Hormone (TSH) 1.32 uIU/mL (0.358-3.74); Triglycerides 122 mg/dL; Very Low Density Lipoprotein 24 mg/dL (5-40)
== END | disposition home or self-care (01) ==
LOC: LAB 08:51
PROVIDERS: PCP Family Medicine; Referring Provider Family Medicine; Visit Provider Family Medicine
DX: I10 Essential (primary) hypertension (principal); I65.23 Occlusion and stenosis of bilateral carotid arteries; E04.2 Nontoxic multinodular goiter; Z12.5 Encounter for screening for malignant neoplasm of prostate
CPT/HCPCS: 36415; 80053; 80061; 84153; 84443; 85025; G0103

== ENCOUNTER 2022-05-15 09:55 | Outpatient (CLI) | payer MEDICARE, OTHER, SELFPAY ==
--- NOTE | 2022-05-15 10:13 | EKG12_ITS ---
Test Reason : PRE-OP Blood Pressure : / mmHG Vent. Rate : 068 BPM Atrial Rate : 068 BPM P-R Int : 122 ms QRS Dur : 122 ms QT Int : 450 ms P-R-T Axes : 074 013 098 degrees QTc Int : 478 ms Normal sinus rhythm Left bundle branch block Abnormal ECG Confirmed by VERENA BROWN, RUTH ([id number]), editor & co founder JAMIE NEIL ([id number]) on 05/16/2022 8:06:26 AM Referred By: Kameron Carson Confirmed By:RUTH ALBARADO MD
[2022-05-15 10:31] LABS: Absolute Lymphocyte Count 2.37 X10^3/uL (0.83-4.51); Absolute Neutrophil Count 5.9 X10^3/uL (2.0-7.7); Basophil# 0.04 X10^3/uL; Basophil% 0.4 % (0-1); Eosinophil# 0.29 X10^3/uL; Eosinophils% 3.2 % (0-5); Hematocrit 42.3 % (40-54); Hemoglobin 14.5 g/dL (13.0-16.5); Lymphocyte # 2.37 X10^3/ul (0.83-4.51); Lymphocyte % 25.8 % (19-41); Mean Corp Hgb Conc 34.3 g/dL (32-36); Mean Corpuscular Volume 96.4 fL (80-94); Mean Platelet Vol. 9.4 fl (6.2-12.0); Monocyte# 0.53 X10^3/uL; Monocyte% 5.8 % (0-10); NRBC Flagged by Analyzer 0 % (0-5); Neutrophil # 5.93 X10^3/uL (2.7-7.7); Neutrophil % 64.7 % (47-70); Platelet Count 363 K/mm3 (150-450); RBC Distribution Width SD 46.5 fl (35.1-43.9); Red Blood Count 4.39 M/mm3 (4.6-6.2); White Blood Count 9.2 K/mm3 (4.4-11.0)
[2022-05-15 10:53] LABS: Hemoglobin A1c 5.5 % (3.8-5.6)
[2022-05-15 11:05] LABS: Albumin, Serum 3.5 g/dL (3.2-5.0); Anion Gap 5 (5-15); BUN 19 mg/dL (7-18); BUN/Creat Ratio 16.1 RATIO (10-20); Calcium,Total 8.9 mg/dL (8.5-10.1); Chloride 102 mmol/L (98-107); Creatinine, Serum 1.18 mg/dL (0.70-1.30); EST Glomerular Filtration Rate 65 mL/min (>60); Est Glom Filt Rate - Afr Amer 79 mL/min (>60); Glucose 92 mg/dL (74-106); Potassium 4.2 mmol/L (3.5-5.1); Sodium Level 140 mmol/L (136-145)
== END 2022-05-15 23:59 | disposition home or self-care (01) ==
LOC: PSN 09:56
PROVIDERS: PCP Family Medicine; Referring Provider Physician Assistant; Visit Provider Physician Assistant
DX: Z01.818 Encounter for other preprocedural examination (principal)
CPT/HCPCS: 36415; 80048; 82040; 83036; 85025; 93005

== ENCOUNTER → 2022-05-24 | Outpatient (CLI) | payer MEDICARE, OTHER, SELFPAY ==
--- NOTE | 2022-05-24 14:35 | RAD_ITS ---
STUDY: X-RAY CHEST REASON FOR EXAM: Male, 66 years old. COUGH TECHNIQUE: XR Chest 2 Views COMPARISON: None FINDINGS: There is atherosclerotic calcification of the aortic arch with tortuosity. There are diffuse degenerative changes of the visualized thoracic spine. There is degenerative osteoarthritis of the bilateral shoulders. There is no demonstrated pleural abnormality. Normal size heart. Normal mediastinum and nani. Normal visualized pulmonary arteries. There is no demonstrated abnormality of the visualized soft tissue structures of the upper abdomen. RAD/Chest PA and Lateral IMPRESSION: There are no acute findings. Electronically Signed: Vidal Yi MD at 18:13 EST ,
== END | disposition home or self-care (01) ==
LOC: RAD 14:28
PROVIDERS: PCP Family Medicine; Referring Provider Family Medicine; Visit Provider Family Medicine
DX: R05.9 Cough, unspecified (principal); I70.0 Atherosclerosis of aorta; M19.012 Primary osteoarthritis, left shoulder; M19.011 Primary osteoarthritis, right shoulder
CPT/HCPCS: 71046

== ENCOUNTER → 2022-06-22 | Outpatient (CLI) | payer MEDICARE, OTHER, SELFPAY ==
--- NOTE | 2022-06-22 14:08 | RAD_ITS ---
STUDY: X-RAY CHEST REASON FOR EXAM: Male, 66 years old. COUGH, RALES TECHNIQUE: PA and lateral views of the chest. COMPARISON: Comparison is made with prior study dated 05/24/2022. FINDINGS: There is hyperinflation of the lungs consistent with chronic obstructive lung disease (COPD). Patchy bibasilar infiltrates. Follow-up is recommended. There is no demonstrated pleural abnormality. Normal size heart. Normal mediastinum and nani. Normal visualized pulmonary arteries. Normal visualized aortic arch and descending thoracic aorta. There are diffuse degenerative changes of the visualized thoracic spine. Normal visualized ribs, clavicles, and shoulders. There is no demonstrated abnormality of the visualized soft tissue structures of the upper abdomen. RAD/Chest PA and Lateral IMPRESSION: Hyperinflation and emphysematous changes. New bibasilar pulmonary infiltrates. Follow-up is recommended. Electronically Signed: Manoj Savage MD at 14:34 EST ,
== END | disposition home or self-care (01) ==
LOC: RAD 14:07
PROVIDERS: PCP Family Medicine; Visit Provider Family Medicine
DX: R91.8 Other nonspecific abnormal finding of lung field (principal); R05.9 Cough, unspecified
CPT/HCPCS: 71046

== ENCOUNTER → 2022-07-06 | Outpatient (CLI) | payer MEDICARE, OTHER, SELFPAY ==
--- NOTE | 2022-07-06 10:39 | RAD_ITS ---
INDICATION: F/U PNA EXAMINATION/TECHNIQUE: X-RAY - XR Chest 2 Views COMPARISON: 06/22/2022. FINDINGS: Interval slight worsening in bibasilar patchy opacities. The cardiomediastinal silhouette is unremarkable. No pleural effusion or pneumothorax. Degenerative changes of the thoracic spine. RAD/Chest PA and Lateral IMPRESSION: Interval slight worsening in bibasilar patchy opacities. Electronically Signed: Cory Beckwith MD at 16:50 EST ,
== END | disposition home or self-care (01) ==
LOC: RAD 10:38
PROVIDERS: PCP Family Medicine; Referring Provider Family Medicine; Visit Provider Family Medicine
DX: J18.9 Pneumonia, unspecified organism (principal)
CPT/HCPCS: 71046

== ENCOUNTER → 2022-11-29 | Outpatient (CLI) | payer MEDICARE, OTHER, SELFPAY ==
--- NOTE | 2022-11-29 13:52 | US_ITS ---
STUDY: SUPERFICIAL ULTRASOUND - LEFT NECK REASON FOR EXAM: Male, 67 years old. Mass TECHNIQUE: A superficial ultrasound was performed with real-time and static marin-scale imaging. COMPARISON: None. FINDINGS: Real-time and color duplex imaging of the left neck demonstrates a 0.9 x 1.0 x 0.7 cm well-circumscribed hypodense mass in or adjacent to the left submandibular gland. There is evidence of internal or peripheral vascularity. US/Head/Neck Soft Tissue IMPRESSION: Mass in or adjacent to the left submandibular gland increased vascularity. Etiology is uncertain. Question pleomorphic adenoma. Electronically Signed: Eamon Mandel DO at 20:35 EDT ,
--- NOTE | 2022-11-29 13:53 | CDU_ITS ---
Reason For Study: Dizziness Rt. Velocities/BP Lt. Velocities/BP Prox CCA 74/10.7 cm/sec. Prox CCA 81.4/17.6 cm/sec. Mid CCA 48.5/11.6 cm/sec. Mid CCA 66.7/13.9 cm/sec. Dist CCA 44.7/9.7 cm/sec. Dist CCA 58.1/12.6 cm/sec. Prox ICA 75.3/15.1 cm/sec. Prox ICA 74/22.5 cm/sec. Mid ICA 91.2/22.5 cm/sec. Mid ICA 103.5/24.9 cm/sec. Dist ICA 86.3/18.8 cm/sec. Dist ICA 83.9/20 cm/sec. Rt. ICA/CCA = 1.89. Lt. ICA/CCA = 1.55. Prox ECA 101/7.9 cm/sec. Prox ECA 96.1/11.4 cm/sec. Rt. Vert. 56.9/11.4 cm/sec. Lt. Vert. 58.1/11.4 cm/sec. Right Extracranial There is homogeneous, smooth atherosclerotic plaque noted in the right common carotid artery. There is heterogeneous, irregular atherosclerotic plaque noted in the right internal carotid artery. There is intimal thickening but no significant atherosclerotic plaque noted in the right external carotid artery. Antegrade flow is noted in the right vertebral artery. Left Extracranial There is homogeneous, smooth atherosclerotic plaque noted in the left common carotid artery. There is heterogeneous, irregular atherosclerotic plaque noted in the left internal carotid artery. There is intimal thickening but no significant atherosclerotic plaque noted in the left external carotid artery. Antegrade flow is noted in the left vertebral artery. At area of concern on neck, structure noted that measures 0.64 x 1.12 cm. Procedure Carotid Duplex 78125. This is a Carotid Duplex examination using B-mode, color flow and specral Doppler. Exam performed in department. VL/Carotid Duplex Ultrasound Interpretation Summary Irregular plaque at the proximal right internal carotid artery with less than 5 0% stenosis Less than 50% stenosis right external carotid artery Irregular plaque at the proximal left internal carotid artery with less than 50 % stenosis Less than 50% stenosis left external carotid artery Patent and antegrade vertebral arteries bilaterally Subfascial area left neck measuring 0.64 x 1.12 cm diameter with slight vascula r flow undetermined etiology. Clinical correlation would be appropriate. Ordering Physician: Ranjeet Eid Referring Physician: Ranjeet Eid Performed By: Ingrid Weber RVT
== END | disposition home or self-care (01) ==
LOC: CVS 13:50
PROVIDERS: PCP Family Medicine; Referring Provider Family Medicine; Visit Provider Family Medicine
DX: I65.23 Occlusion and stenosis of bilateral carotid arteries (principal); R42 Dizziness and giddiness; R22.1 Localized swelling, mass and lump, neck
CPT/HCPCS: 76536; 93880

== ENCOUNTER → 2022-12-27 | Outpatient (CLI) | payer MEDICARE, OTHER, SELFPAY ==
--- NOTE | 2022-12-27 14:38 | CT_ITS ---
INDICATION: L NECK MASS- MARKED WITH BB EXAMINATION: CT NECK WITH CONTRAST - CT Soft Tissue Neck W/ Contrast Injection TECHNIQUE: Helically acquired images were obtained of the neck following IV contrast. A radiation dose optimization technique was used for this scan. IV Contrast dosage and agent: 75 mL to 370 RADIATION DOSAGE (If Supplied By Facility): CTDIvol = ( 15.46 ) mGy, DLP = ( 521.45 ) mGycm COMPARISON: Thyroid ultrasound November 20, 2018 and May 15, 2018. Head neck ultrasound and carotid ultrasound November 29, 2022 FINDINGS: BB marker overlies the left submandibular gland which extends more inferior within the right with ill-defined hypodense fullness along the deep margin which appears to extend into the left vallecula, reference axial image 64 and 63. Left submandibular gland is relatively homogeneous in appearance superficially and similar in morphology to the right. Overlying prominent vein is noted. No surrounding inflammatory stranding or ductal ectasia. No visible ductal stone. Pharyngeal tonsils are symmetric and normal appearance. Parapharyngeal fat is preserved symmetric fossa of Rosenmuller. Base of tongue is unremarkable. Normal epiglottis. No prevertebral soft tissue thickening. Right anterior thyroid 4 mm nodule or vessel axial image 36, unchanged from May 15, 2018 thyroid ultrasound. No other thyroid nodules are readily seen by CT. Scattered cervical lymph nodes are present without a suspicious enlargement or morphology. No evidence of ian necrosis Mild dependent atelectasis. Carotid vessels are patent with scattered atherosclerosis without flow-limiting stenosis. Vertebral arteries are symmetric, patent. Intracranial structures are grossly symmetric and patent nonangiogram exam. Image portion of the dural venous sinuses are patent. Mild scattered bilateral mastoid air cell fluid, possibly exaggerated by volume averaging. Acute on chronic right maxillary sinus mucoperiosteal thickening with chronic wall thickening. Rightward osseous nasal septal deviation. Bilateral natalie bullosa. Unremarkable orbits with scleral bands. Rishabh foramen magnum with preserved cerebellar vermis. No acute osseous finding. Diffuse mid cervical spondylosis with mild spinal canal narrowing and moderate to severe multilevel neural foraminal stenosis. CT/Soft Tissue Neck WITH Contrast IMPRESSION: BB marker superficial to the left submandibular gland and prominent overlying vein. There is Ill-defined hypodense fullness along the deep margin of the left submandibular gland with extension into the left vallecula suspicious for mass, though more distinct on comparison ultrasound. Recommend MRI with and without IV contrast with ENT follow-up. Scattered bilateral cervical lymph nodes are present without clinically suspicious enlargement or morphology. Magna cisterna magna Acute on chronic right maxillary sinus disease. Mild scattered fluid in the bilateral mastoid air cells of unknown clinical significance. Spondylosis in the mid to lower cervical spine with multilevel moderate to severe neural foraminal narrowing and mild spinal canal stenosis Electronically Signed: Aaron Brady MD at 9:40 EDT ,
[2022-12-27 15:12] LABS: EGFR FINGERSTICK > 60.0000 mL/min (>60)
== END | disposition home or self-care (01) ==
LOC: CT 14:36
PROVIDERS: PCP Family Medicine; Referring Provider Otolaryngology; Visit Provider Otolaryngology
DX: R22.1 Localized swelling, mass and lump, neck (principal)
CPT/HCPCS: 70491; Q9967

== ENCOUNTER → 2023-01-14 | Outpatient (CLI) | payer MEDICARE, OTHER, SELFPAY ==
--- NOTE | 2023-01-14 | ASPOS_PTH ---
PATIENT: JORGE JACQUES LOC: [facility] U#:[id number] AGE/SX: 67/M ROOM: RE01/14/[address]: Dr. Cory Mesa MD : 1955 BED: DIS: 01/14/2023 SPEC #: [id number] RECD: 01/14/23 10:47 STATUS: SUSAN MARIA #: [id number] ROD: 01/14/23 00:[address]: Cory Mesa DEPT: CYTOLOGY RECD BY: Vamsi Flanagan ENTERED: 01/14/23 10:48 SP TYPE: ASP HERE OTHR DR: Dr. Ranjeet Eid, DO Tissues: Mandible, NOS Procedures: Surgery Specimen Level IV Cytology Other Fine Needle Asp on Site HEADER OPERATION: Fine needle aspiration left submandibular gland PRE-OP DIAGNOSIS: Not noted TISSUE SUBMITTED: Left submandibular gland DIAGNOSIS CYTOLOGY Fine needle aspiration, left submandibular gland (smears and cell block): Rare benign salivary gland tissue and blood. No evidence of malignancy. AM:juan antonio 01/15/2023 COMMENT A fine needle aspiration was performed and the specimen is evaluated at the time of FNA by Dr. Quiroz. Immediate Evaluation = Negative for malignant cells. Normal salivary gland tissue. Blood. CYTOLOGY STUDY Slides are reviewed. CYTOLOGY GROSS Received is 0.2 ml of reddish fluid labeled with the patient's name, and designated left submandibular gland. Two imprints are made from the submitted fluid and the rest is added to CytoLyt for cell block preparation. Submitted for cytology study. / AM:juan antonio 01/14/2023 TC:5 CPT: 94843, 62389, 10142, 07009
== END | disposition home or self-care (01) ==
LOC: LAB 08:02
PROVIDERS: PCP Family Medicine; Referring Provider Otolaryngology; Visit Provider Otolaryngology
DX: R22.0 Localized swelling, mass and lump, head (principal)
CPT/HCPCS: 10021; 88161; 88305

== ENCOUNTER → 2023-02-22 | Outpatient (CLI) | payer MEDICARE, OTHER, SELFPAY ==
--- NOTE | 2023-02-22 14:01 | EKG12_ITS ---
Test Reason : PRE OP Blood Pressure : / mmHG Vent. Rate : 065 BPM Atrial Rate : 065 BPM P-R Int : 124 ms QRS Dur : 122 ms QT Int : 482 ms P-R-T Axes : 077 -42 093 degrees QTc Int : 501 ms Sinus rhythm with occasional Premature ventricular complexes Left axis deviation Left bundle branch block Abnormal ECG Confirmed by DEVONTE BROWN, CHON ([id number]), advertising editor JAMAAL FLORES ([id number]) on 03/04/2023 7:37:31 AM Referred By: Kameron Carson Confirmed By:CHON WHITNEY MD
[2023-02-22 14:37] LABS: Absolute Neutrophil Count 6.5 X10^3/uL (2.0-7.7); Basophil# 0.04 X10^3/uL; Basophil% 0.4 % (0-1); Eosinophils% 2.1 % (0-5); Hematocrit 42.2 % (40-54); Lymphocyte % 23.9 % (19-41); Mean Corp Hgb Conc 33.2 g/dL (32-36); Mean Corpuscular Hgb 32.8 pg (27.0-32.0); Mean Corpuscular Volume 98.8 fL (80-94); Mean Platelet Vol. 9.7 fl (6.2-12.0); Monocyte# 0.52 X10^3/uL; Monocyte% 5.4 % (0-10); NRBC Flagged by Analyzer 0 % (0-5); Neutrophil # 6.54 X10^3/uL (2.7-7.7); Neutrophil % 67.9 % (47-70); Platelet Count 267 K/mm3 (150-450); RBC Distribution Width CV 12.8 % (11.6-14.6); RBC Distribution Width SD 45.7 fl (35.1-43.9); Red Blood Count 4.27 M/mm3 (4.6-6.2); White Blood Count 9.6 K/mm3 (4.4-11.0)
[2023-02-22 15:09] LABS: Anion Gap 4 (5-15); BUN 26 mg/dL (7-18); BUN/Creat Ratio 22.8 RATIO (10-20); Chloride 104 mmol/L (98-107); Creatinine, Serum 1.14 mg/dL (0.70-1.30); EST Glomerular Filtration Rate 68 mL/min (>60); Est Glom Filt Rate - Afr Amer 82 mL/min (>60); Glucose 96 mg/dL (74-106); Potassium 4.3 mmol/L (3.5-5.1); Sodium Level 138 mmol/L (136-145)
[2023-02-22 16:07] LABS: Hemoglobin A1c 5.4 % (3.8-5.6)
== END | disposition home or self-care (01) ==
LOC: PSN 13:55
PROVIDERS: PCP Family Medicine; Referring Provider Physician Assistant; Visit Provider Physician Assistant
DX: Z01.818 Encounter for other preprocedural examination (principal); Z01.810 Encounter for preprocedural cardiovascular examination; M16.12 Unilateral primary osteoarthritis, left hip
CPT/HCPCS: 36415; 80048; 83036; 85025; 93005

== ENCOUNTER → 2023-03-26 | Outpatient (CLI) | payer MEDICARE, OTHER, SELFPAY ==
--- NOTE | 2023-03-25 | HIP_PTH ---
PATIENT: JORGE JACQUES LOC: [facility] U#:[id number] AGE/SX: 67/M ROOM: RE03/26/[address]: Kameron Carson PA-C : 1955 BED: DIS: 03/26/2023 SPEC #: [id number] RECD: 03/26/23 10:59 STATUS: SUSAN REQ #: [id number] ROD: 03/25/23 00:[address]: Sherif Perez DEPT: SURGICAL PATHOLOGY RECD BY: Vamsi Flanagan ENTERED: 03/26/23 10:59 SP TYPE: TOTAL HIP OTHR DR: DO Kameron Onofre PA-C [facility] Tissues: Hip, NOS Procedures: Decalcification bone/plaque Surgery Specimen Level IV Comments: @ Ordering doctor for DEC edited from HAKEEM to @ by MEENA at 03/26/231457 @ Ordering doctor for SUIV edited from HAKEEM to DR.MKNAPI Lomeli by MEENA at 03/26/231457 @ Submitting doctor edited from HAKEEM to DR.MKNAPI Lomeli by MEENA at 03/26/231457 HEADER OPERATION: Left total hip arthroplasty PRE-OP DIAGNOSIS: Osteoarthritis left hip TISSUE SUBMITTED: Bone and soft tissue left hip MICROSCOPIC DIAGNOSIS Bone and soft tissue of left hip, total hip resection: Severe degenerative joint disease. AM:juan antonio 03/29/2023 MICROSCOPIC DESCRIPTION Slides are reviewed. GROSS DESCRIPTION Received is one container labeled with the patient's name and designated bone and soft tissue left hip. The specimen consists of a hamilton femoral head measuring 7.0 x 5.3 x 5.0 cm. The articular surface displays prominent osteophyte formation, eburnation and bone erosion. Also present in the specimen container are multiple irregular fragments of bone, bone reamings and pink-yellow soft tissue measuring in aggregate 11.0 x 10.0 x 2.0 cm. Water Safety Teacher sections are submitted in two cassettes as follows: 1??soft tissue, 2 - bone after decalcification. / AM:juan antonio 03/26/2023 TC:5 CPT: 64607, 33955
== END | disposition home or self-care (01) ==
LOC: LABSPEC 10:31
PROVIDERS: PCP Family Medicine; Referring Provider Physician Assistant; Visit Provider Physician Assistant
DX: M16.12 Unilateral primary osteoarthritis, left hip (principal)
CPT/HCPCS: 88305; 88311

== ENCOUNTER → 2023-06-12 | Outpatient (CLI) | payer MEDICARE, OTHER, SELFPAY ==
--- NOTE | 2023-06-12 16:20 | RAD_ITS ---
STUDY: X-RAY CHEST REASON FOR EXAM: Male, 67 years old. CHEST PAIN, COUGH TECHNIQUE: Single frontal view of the chest. COMPARISON: July 06, 2022 FINDINGS: Lungs are hyperaerated. Mild bibasilar interstitial infiltrates. There is no demonstrated pleural abnormality. Normal size heart. Normal mediastinum and nani. Normal visualized pulmonary arteries. Normal visualized aortic arch and descending thoracic aorta. Normal visualized thoracic spine. Normal visualized ribs, clavicles, and shoulders. There is no demonstrated abnormality of the visualized soft tissue structures of the upper abdomen. RAD/Chest PA and Lateral IMPRESSION: Improved bibasilar infiltrates. COPD. Electronically Signed: Eliecer Mendez MD at 23:57 EST ,
== END | disposition home or self-care (01) ==
LOC: MTRAD 16:19
PROVIDERS: PCP Family Medicine; Referring Provider Nurse Practitioner Family; Visit Provider Nurse Practitioner Family
DX: R07.9 Chest pain, unspecified (principal); R05.9 Cough, unspecified; Z87.01 Personal history of pneumonia (recurrent)
CPT/HCPCS: 71046

== ENCOUNTER → 2023-06-25 | Outpatient (CLI) | payer MEDICARE, OTHER, SELFPAY ==
[2023-06-25 12:07] LABS: Absolute Lymphocyte Count 2.35 X10^3/uL (0.83-4.51); Absolute Neutrophil Count 4.2 X10^3/uL (2.0-7.7); Basophil# 0.05 X10^3/uL; Basophil% 0.7 % (0-1); Eosinophil# 0.22 X10^3/uL; Hematocrit 43.6 % (40-54); Hemoglobin 14.1 g/dL (13.0-16.5); Lymphocyte # 2.35 X10^3/ul (0.83-4.51); Lymphocyte % 31.9 % (19-41); Mean Corp Hgb Conc 32.3 g/dL (32-36); Mean Corpuscular Hgb 30.9 pg (27.0-32.0); Mean Corpuscular Volume 95.6 fL (80-94); Mean Platelet Vol. 9.7 fl (6.2-12.0); Monocyte# 0.51 X10^3/uL; Monocyte% 6.9 % (0-10); NRBC Flagged by Analyzer 0 % (0-5); Neutrophil # 4.21 X10^3/uL (2.7-7.7); Neutrophil % 57.2 % (47-70); Platelet Count 389 K/mm3 (150-450); RBC Distribution Width CV 13.3 % (11.6-14.6); RBC Distribution Width SD 47.1 fl (35.1-43.9); Red Blood Count 4.56 M/mm3 (4.6-6.2); White Blood Count 7.4 K/mm3 (4.4-11.0)
[2023-06-25 12:39] LABS: ALB/GLOB Ratio 1.1 RATIO (0.9-2.4); AST(SGOT) 18 U/L (15-37); Alanine Aminotransfer ALT/SGPT 21 U/L (16-61); Albumin, Serum 3.6 g/dL (3.2-5.0); Alkaline Phosphatase 100 U/L (45-117); Anion Gap 3 (5-15); BUN 16 mg/dL (7-18); BUN/Creat Ratio 15.1 RATIO (10-20); Calcium,Total 9.6 mg/dL (8.5-10.1); Chloride 104 mmol/L (98-107); Cholesterol 223 mg/dL (200); Creatinine, Serum 1.06 mg/dL (0.70-1.30); EST Glomerular Filtration Rate 74 mL/min (>60); Est Glom Filt Rate - Afr Amer 89 mL/min (>60); Globulin 3.2 g/dL (2.2-4.2); Glucose 94 mg/dL (74-106); High Density Lipoprotein 45 mg/dL; PSA,Total - Annual Screen 0.99 ng/mL (0.00-4.00); Potassium 4.5 mmol/L (3.5-5.1); Protein, Total 6.8 g/dL (6.4-8.2); Sodium Level 138 mmol/L (136-145); Triglycerides 147 mg/dL; Very Low Density Lipoprotein 29 mg/dL (5-40)
[2023-06-25 12:49] LABS: Microalbumin,Random Urine 8.6 mg/L (NO RANGE EST.); Microalbumin:Creatinine Ratio 6.7 mg/g CRE (<30 mg/g CRE)
== END | disposition home or self-care (01) ==
LOC: BFHLAB 08:22
PROVIDERS: PCP Family Medicine; Referring Provider Family Medicine; Visit Provider Family Medicine
DX: I10 Essential (primary) hypertension (principal); Z12.5 Encounter for screening for malignant neoplasm of prostate; R53.82 Chronic fatigue, unspecified
CPT/HCPCS: 36415; 80053; 80061; 82043; 82570; 84153; 84403; 85025; G0103

== ENCOUNTER → 2023-12-25 | Outpatient (CLI) | payer MEDICARE, OTHER, SELFPAY ==
[2023-12-25 09:18] LABS: Absolute Neutrophil Count 4.1 X10^3/uL (2.0-7.7); Basophil# 0.06 X10^3/uL; Basophil% 0.8 % (0-1); Eosinophil# 0.28 X10^3/uL; Eosinophils% 3.8 % (0-5); Hematocrit 41.9 % (40-54); Hemoglobin 14.3 g/dL (13.0-16.5); Lymphocyte % 32.4 % (19-41); Mean Corp Hgb Conc 34.1 g/dL (32-36); Mean Corpuscular Hgb 32.6 pg (27.0-32.0); Mean Corpuscular Volume 95.7 fL (80-94); Mean Platelet Vol. 9.8 fl (6.2-12.0); Monocyte# 0.52 X10^3/uL; NRBC Flagged by Analyzer 0 % (0-5); Neutrophil # 4.14 X10^3/uL (2.7-7.7); Neutrophil % 55.9 % (47-70); Platelet Count 259 K/mm3 (150-450); RBC Distribution Width CV 13.2 % (11.6-14.6); RBC Distribution Width SD 47.2 fl (35.1-43.9); Red Blood Count 4.38 M/mm3 (4.6-6.2); White Blood Count 7.4 K/mm3 (4.4-11.0)
[2023-12-25 09:47] LABS: Cholesterol 221 mg/dL (200); High Density Lipoprotein 58 mg/dL; Triglycerides 113 mg/dL; Very Low Density Lipoprotein 23 mg/dL (5-40)
== END | disposition home or self-care (01) ==
LOC: LAB 08:36
PROVIDERS: PCP Family Medicine; Referring Provider Family Medicine; Visit Provider Family Medicine
DX: E78.5 Hyperlipidemia, unspecified (principal); T14.8XXA Other injury of unspecified body region, initial encounter
CPT/HCPCS: 36415; 80061; 85025

== ENCOUNTER → 2024-06-24 | Outpatient (CLI) | payer MEDICARE, OTHER, SELFPAY ==
[2024-06-24 09:27] LABS: Absolute Lymphocyte Count 2.34 X10^3/uL (0.83-4.51); Absolute Neutrophil Count 3.1 X10^3/uL (2.0-7.7); Basophil# 0.05 X10^3/uL; Basophil% 0.8 % (0-1); Eosinophil# 0.23 X10^3/uL; Eosinophils% 3.7 % (0-5); Hematocrit 43.3 % (40-54); Hemoglobin 14.7 g/dL (13.0-16.5); Lymphocyte # 2.34 X10^3/ul (0.83-4.51); Lymphocyte % 37.9 % (19-41); Mean Corp Hgb Conc 33.9 g/dL (32-36); Mean Corpuscular Hgb 32.8 pg (27.0-32.0); Mean Corpuscular Volume 96.7 fL (80-94); Mean Platelet Vol. 9.9 fl (6.2-12.0); Monocyte# 0.47 X10^3/uL; Monocyte% 7.6 % (0-10); NRBC Flagged by Analyzer 0 % (0-5); Neutrophil # 3.08 X10^3/uL (2.7-7.7); Neutrophil % 49.8 % (47-70); Platelet Count 292 K/mm3 (150-450); RBC Distribution Width CV 12.5 % (11.6-14.6); RBC Distribution Width SD 44.7 fl (35.1-43.9); Red Blood Count 4.48 M/mm3 (4.6-6.2); White Blood Count 6.2 K/mm3 (4.4-11.0)
[2024-06-24 10:40] LABS: ALB/GLOB Ratio 1.3 RATIO (0.9-2.4); AST(SGOT) 19 U/L (15-37); Alanine Aminotransfer ALT/SGPT 19 U/L (16-61); Albumin, Serum 3.6 g/dL (3.2-5.0); Alkaline Phosphatase 92 U/L (45-117); Anion Gap 2 (5-15); BUN 15 mg/dL (7-18); Calcium,Total 8.9 mg/dL (8.5-10.1); Chloride 105 mmol/L (98-107); Cholesterol 205 mg/dL (200); Creatinine, Serum 1.07 mg/dL (0.70-1.30); EST Glomerular Filtration Rate 73 mL/min (>60); Est Glom Filt Rate - Afr Amer 88 mL/min (>60); Globulin 2.8 g/dL (2.2-4.2); Glucose 93 mg/dL (74-106); High Density Lipoprotein 50 mg/dL; Potassium 3.8 mmol/L (3.5-5.1); Protein, Total 6.4 g/dL (6.4-8.2); Sodium Level 137 mmol/L (136-145); Triglycerides 103 mg/dL; Very Low Density Lipoprotein 21 mg/dL (5-40)
[2024-06-24 11:43] LABS: PSA,Total - Annual Screen 0.25 ng/mL (0.00-4.00)
[2024-06-24 14:02] LABS: Microalbumin,Random Urine 9.3 mg/L (NO RANGE EST.); Microalbumin:Creatinine Ratio 8.1 mg/g CRE (<30 mg/g CRE)
== END | disposition home or self-care (01) ==
PROVIDERS: PCP Family Medicine; Referring Provider Family Medicine; Visit Provider Family Medicine
DX: Z12.5 Encounter for screening for malignant neoplasm of prostate (principal); I10 Essential (primary) hypertension; E78.5 Hyperlipidemia, unspecified
CPT/HCPCS: 36415; 80053; 80061; 82043; 82570; 84153; 85025; G0103

== ENCOUNTER → 2025-04-27 | Outpatient (CLI) | payer MEDICARE, OTHER, SELFPAY ==
--- NOTE | 2025-04-27 10:55 | CDU_ITS ---
Reason For Study VL/Carotid Duplex Ultrasound
== END | disposition home or self-care (01) ==
LOC: CVS 10:52
PROVIDERS: PCP Family Medicine; Referring Provider Family Medicine; Visit Provider Family Medicine
DX: I65.23 Occlusion and stenosis of bilateral carotid arteries (principal)
CPT/HCPCS: 93880